=== PATIENT | male | born 1950 | race Caucasian/White ===

== ENCOUNTER → 2024-12-09 | Outpatient (CLI) | payer OTHER, SELFPAY ==
[2024-12-09 09:14] LABS: Alanine Aminotransferase 8 U/L (10-49); Albumin, Serum 4.5 gm/dL (3.4-4.8); Alkaline Phosphatase 64 U/L (46-116); Aspartate Amino Transferase 16 U/L (0-34); Bilirubin,Direct 0.1 mg/dL (0.0-0.3); Bilirubin,Total 0.5 mg/dL (0.3-1.2); Cardiac Risk Estimate 4.3 RATIO (4.0-6.7); Cholesterol 146 mg/dL (132-200); HDL Cholesterol 34 mg/dL (40-60); LDL Cholesterol,Calculated 89 mg/dL (0-130); Total Protein 6.9 gm/dL (5.7-8.2); Triglycerides 115 mg/dL (30-150)
== END | disposition home or self-care (01) ==
LOC: COPL 06:59
PROVIDERS: PCP Family Medicine; Referring Provider Internal Medicine Cardiovascular Disease; Visit Provider Internal Medicine Cardiovascular Disease
DX: I20.89 Other forms of angina pectoris (principal)
CPT/HCPCS: 36415; 80061; 80076

== ENCOUNTER 2024-12-18 04:46 | Emergency (ER) | payer OTHER, SELFPAY ==
[2024-12-18 04:47] VITALS: BMI 27.8
--- NOTE | 2024-12-18 04:50 | EKG_ITS ---
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
--- NOTE | 2024-12-18 05:00 | XR_ITS ---
Examination: AP chest single view TECHNIQUE: AP portable upright chest single view Exam date and time: December 18, 2024, 0534 hours Comparison September 28, 2016. INDICATIONS: Chest pain today. FINDINGS: Normal heart size. Lungs are clear. The osseous structures are intact IMPRESSION: No active disease
[2024-12-18 05:03] VITALS: BP 161/84; PULSE 64; RESP 15; TEMP 36.8; O2SAT 95
--- NOTE | 2024-12-18 05:06 | PD.EDCHEST ---
ED Chest Pain RME/HPI General Chief Complaint: Chest Pain Stated Complaint: CHEST PAIN Time Seen by Provider: 12/18/24 04:59 Arrival date/time: 12/18/24 04:46 RME / HPI RME / HPI narrative: Dr. Velez?s Main ED Evaluation: 74yo male with a history of DM, CAD s/p stent placement (10/2023) presents to the ED for a chief complaint of intermittent chest pain x 2 days. No radiation or migration. Patient states his pain worsens when he moves. Patient reports associated shortness of breath. He denies any N/V, sweating, fever, chills or any other associated symptoms. Patient reports he took himself off of his Brillinta 3-4 months ago and is now only taking baby aspirin. Related Data Home Medications ?Medication ?Instructions ?Recorded ?Confirmed finasteride 1 mg tablet 5 mg PO QDAY 10/07/23 10/11/23 omeprazole 20 mg capsule,delayed 20 mg PO QDAY 10/07/23 10/11/23 release tamsulosin 0.4 mg capsule 0.8 mg PO QDAY 10/07/23 10/11/23 aspirin 81 mg tablet 81 mg PO QDAY 10/11/23 10/11/23 glimepiride 2 mg tablet 2 mg PO QAM 10/11/23 10/11/23 metformin 1,000 mg tablet 1,000 mg PO QDAY 10/11/23 10/11/23 Held on 10/11/23. Instructions: Resume on 10/14/23. RESUME THIS MEDICATION ON THIS DATE AT YOUR USUAL TIME Previous Rx's ?Medication ?Instructions ?Recorded ticagrelor 90 mg tablet (Brilinta) 90 mg PO BID #60 tabs 10/11/23 Allergies Allergy/AdvReac Type Severity Reaction Status Date / Time morphine Allergy Severe DIZZY, Verified 12/18/24 04:50 DIAPHORETIC Review of Systems Review of Systems Systems Reviewed: All systems reviewed, normal except as documented Past Medical History Past Medical History NEUROLOGIC: Negative Neurological Disorders or Seizures CARDIAC: Positive Cardiac Disorders (OCCASSIONAL CHEST PAIN WITH SOB.); Negative Congestive Heart Failure RESPIRATORY: Negative Chronic Obstructive Pulmonary Disease (COPD) GASTROINTESTINAL: Positive Gastrointestinal Disorders, Gall Bladder Disease and Gastroesophageal Reflux Disease (takes medication) GENITOURINARY: Positive Genitourinary Disorders and Benign Prostatic Hyperplasia; Negative Renal Disease MUSCULOSKELETAL: Positive Musculoskeletal Disorders, Arthritis and Carpal Tunnel Syndrome (left hand) ENT: Positive Cataracts ENDOCRINE: Positive Endocrine Disorders and Diabetes Mellitus Type 2; Negative Diabetes Mellitus Type 1 HEMATOLOGIC: Negative Blood Disorders OTHER HISTORY: Positive Chicken Pox; Negative Falls, Blood Transfusions, Blood Transfusion Reaction, Anesthesia Reactions, MRSA or Cancer Family History FAMILY HISTORY: Positive Family Cardiac Disorders (BROTHER - AL) and Family Cancer (FATHER- LUNG) Surgical History SURGICAL: Positive Abdominal Surgery and Joint Replacement (RIGHT KNEE); Negative Cardiac Surgery, Endocrine Surgery or Neurologic Surgery Social History SMOKING STATUS: Never smoker ED Exam Narrative Physical exam: GENERAL APPEARANCE: AxOx4, generally well-appearing, no acute distress. HEENT: NC, AT. MMM. EOMI, clear conjunctiva, oropharynx clear. NECK: Supple without lymphadenopathy. No stiffness or restricted ROM. HEART: Normal rate and regular rhythm, normal S1/S1, no m/r/g LUNGS: CTAB, moving air well. No crackles or wheezes are heard. ABDOMEN: Soft, nontender, nondistended with good bowel sounds heard. BACK: No midline C/T/L spine pain or deformity, No CVAT, no obvious deformity. EXTREMITIES: Without cyanosis, clubbing or edema. MUSCULOSKELETAL: FROM of all major joints, no chest tenderness NEUROLOGICAL: Grossly nonfocal. Alert and oriented, moving all 4 extremities. CN not formally tested but appear grossly intact. Observed to ambulate with normal gait. Skin: Warm and dry without any rash. Course Course Course Narrative: CXR is ordered for determining the etiology of chest pain. Quality Measures none Orders Category Date Time Status EKG (ED ONLY) *Do not use* NOW Care 12/18/24 04:50 Completed EKG (ED Only) Stat Exams 12/18/24 04:50 Draft XR chest 1V Stat Exams 12/18/24 05:00 Taken CBC Stat Lab 12/18/24 05:00 Received CMP [Comprehensive Metabolic Panel] Stat Lab 12/18/24 05:00 Received Partial Thromboplastin Time Stat Lab 12/18/24 05:00 Received Prothrombin Time with INR Stat Lab 12/18/24 05:00 Received Troponin I Stat Lab 12/18/24 05:00 Received Nitroglycerin [Nitrostat 1/150] Med 12/18/24 05:07 Active 0.4 mg SL Q5MIN PRN Vital Signs Vital signs: Vital Signs Temperature 98.3 F 12/18/24 05:03 Pulse Rate 64 12/18/24 05:03 Respiratory Rate 15 12/18/24 05:03 Blood Pressure 161/84 H 12/18/24 05:03 Pulse Oximetry (%) 95 12/18/24 05:03 Oxygen Delivery Method Room Air 12/18/24 05:03 Chest Pain MDM Narrative MDM Narrative:: Scribe Attestation: 12/18/24 Marti Medellin am scribing for and in the presence of Dr. Velez. Patient data External records reviewed:: [facility] previous records (Per chart review, patient had a cardiac stent placed on 10/11/23.) Clinical information provided by:: patient Social determinants that could affect healthcare access:: none Patient has the following chronic illnesses:: DM How is presenting disease/condition affected by chronic disease/condition?: uneffected by Evaluation data The following diagnostics were reviewed and interpreted by me:: lab results, radiology exam(s) and EKG tracing(s) Lab and/or radiology exams considered but not ordered:: none Interpretation Summary: Labs are pending at signout. CXR is negative for any cardiomegaly, infiltrates or pleural effusions, according to my interpretation. EKG done at 0501, NSR, rate of 63, normal intervals, normal axis, no acute ST or T wave changes, according to my interpretation. Medications / Prescriptions Medications or Prescriptions considered but not ordered:: none Medication administrations:: Medication Administration History Nitroglycerin (Nitroglycerin 0.4 Mg Subl Btl #25) 0.4 mg SL Q5MIN PRN PRN Reason: CHEST PAIN see above Consultations Consultation(s) initiated? (list below): No Diagnosis Chest Pain Differential Diagnosis: other (ACS, acute AL, pneumonia) Most likely diagnosis given after review of the tests above:: final dx pending at sign out. Admission Indicated Admission indicated?: not indicated Admission Request Was there a request for admission?: No Disposition Plan Disposition Plan: other (specify) (Signed out to Dr. Haro at 0600 pending labs.) Discharge Plan Prescriptions/Referrals Prescriptions/Med Rec: No Action tamsulosin 0.4 mg Capsule 0.8 mg PO QDAY omeprazole 20 mg capsule,delayed release(DR/EC) 20 mg PO QDAY Patient Comments: TAKE 1 CAPSULE BY MOUTH EVERY DAY FOR 90 DAYS finasteride 1 mg Tablet 5 mg PO QDAY glimepiride 2 mg Tablet 2 mg PO QAM Rx Instructions: administer with breakfast metformin 1,000 mg Tablet 1,000 mg PO QDAY aspirin 81 mg Tablet 81 mg PO QDAY Brilinta 90 mg Tablet 90 mg PO BID Qty: 60 0RF Problem List Clinical Impression: Chest pain Patient/Caregiver Discharge Instructions Print Language: Arabic
[2024-12-18 05:42] LABS: Basophils # (Auto) 0.1 Thou/mm3 (0.0-0.2); Basophils % (Auto) 1 % (0-2.5); Eosinophils # (Auto) 0.3 Thou/mm3 (0.0-0.5); Eosinophils % (Auto) 4 % (0-10); Hematocrit 45.6 % (41.0-53.0); Hemoglobin 16.5 g/dL (13.5-16.0); Immature Granulocytes % (Auto) 1 % (0-0); Immature Granulocytes Auto 0.08 Thou/mm3 (0.00-0.00); Lymphocytes # (Auto) 1.7 Thou/mm3 (1.0-4.8); Lymphocytes % (Auto) 22 % (10-50); Mean Corpuscular HGB Conc 36.2 g/dl (31.0-37.0); Mean Corpuscular Hemoglobin 31.9 pg (25.0-35.0); Mean Corpuscular Volume 88 fL (80-100); Monocytes # (Auto) 0.6 Thou/mm3 (0.0-0.8); Monocytes % (Auto) 7 % (0-12); Neutrophils # (Auto) 5.2 Thou/mm3 (1.8-7.7); Neutrophils % (Auto) 66 % (37-80); Nucleated Red Blood Cell % 0 /100 WBC (0); Platelet Count 200 Thou/mm3 (140-440); RDW Standard Deviation 39.7 fL (35.1-43.9); Red Blood Count 5.17 Miln/mm3 (4.50-5.90); White Blood Count 7.9 Thou/mm3 (3.8-10.6)
[2024-12-18 06:20] VITALS: BP 142/77; PULSE 54; RESP 16; TEMP 36.5; O2SAT 96
[2024-12-18 06:20] LABS: Alanine Aminotransferase 7 U/L (10-49); Albumin, Serum 4.3 gm/dL (3.4-4.8); Albumin/Globulin Ratio 1.9 (1.2-2.2); Alkaline Phosphatase 63 U/L (46-116); Anion Gap 9 (7-16); Aspartate Amino Transferase 14 U/L (0-34); BUN/Creatinine Ratio 17 Ratio (12-20); Bilirubin,Total 0.4 mg/dL (0.3-1.2); Blood Urea Nitrogen 17 mg/dL (9-23); Calcium 8.7 mg/dL (8.3-10.6); Calcium (Corrected) 8.7 mg/dL (8.5-10.1); Carbon Dioxide 23.9 mMol/L (20.0-31.0); Chloride 106 mMol/L (98-107); Estimated Creatinine Clearance 71.1 mL/min (>60); Globulin 2.3 gm/dL (2.3-3.5); Glucose 254 mg/dL (74-106); Osmolality,Calculated 288 (275-295); Potassium 4.1 mMol/L (3.4-5.1); Sodium 139 mMol/L (136-145); Total Protein 6.6 gm/dL (5.7-8.2); Troponin I < 0.002 ng/mL (0.0-0.045); eGFR > 60 See Note
[2024-12-18 06:27] LABS: Partial Thromboplastin Time 25.1 Seconds (22.0-36.0); Prothrombin Time 11.2 Seconds (9.0-12.2)
--- NOTE | 2024-12-18 07:31 | PD.EDADDENDU ---
Emergency Room Addendum Addendum Narrative: 0600: Care assumed from Dr. Velez, the previous shift emergency physician. Past medical, surgical, social and family history reviewed. Vitals and home medications reviewed. I will assume the care of the patient at this time, pending labs and final disposition. Please refer to the emergency department record for history and examination from initial visit.?The following addendum documentation note is intended to reflect any pending information, findings, or radiology results not included in the patient?s initial chart. Nursing notes reviewed by me. Vital signs reviewed by me. [facility] medical records reviewed by me. Delta troponin remains unchanged and negative. 1045: At this time patient has no pain. Patient remains clinically stable throughout the emergency department visit. We reviewed all the results, analysis, and treatment plans. Patient is amenable to discharge. Strict return precautions were outlined. Patient was discharged in stable condition. 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 Currie's office after leaving here.
--- NOTE | 2024-12-18 07:52 | PC.NURSE ---
PT DENIES PAIN OR DISCOMFORT UPON ASSUMPTION OF CARE, PT GIVEN URINAL. VSS ON TELE, CALL [facility] IN REACH, WILL CONT W/POC.
[2024-12-18 10:00] VITALS: BP 155/79; PULSE 56; RESP 18; TEMP 36.6; O2SAT 96
[2024-12-18 10:23] LABS: Troponin I < 0.002 ng/mL (0.0-0.045)
== END 2024-12-18 10:59 | disposition home or self-care (01) ==
PROVIDERS: Family Medicine; Emergency Provider Emergency Medicine; PCP Family Medicine
DX: R07.89 Other chest pain (principal); E11.9 Type 2 diabetes mellitus without complications; I25.10 Atherosclerotic heart disease of native coronary artery without angina pectoris; Z95.5 Presence of coronary angioplasty implant and graft
CPT/HCPCS: 36415; 71045; 80053; 84484; 85025; 85610; 85730; 93005; 99283

== ENCOUNTER → 2025-04-15 | Outpatient (CLI) | payer OTHER, SELFPAY ==
[2025-04-15 08:27] LABS: Urea Breath Test Negative (Negative)
== END | disposition home or self-care (01) ==
LOC: COPL 07:04
PROVIDERS: PCP Family Medicine; Referring Provider Nurse Practitioner Family; Visit Provider Nurse Practitioner Family
DX: R11.0 Nausea (principal)
CPT/HCPCS: 83013; 83014

== ENCOUNTER → 2025-05-05 | Outpatient (CLI) | payer OTHER, SELFPAY ==
--- NOTE | 2025-05-05 07:15 | XR_ITS ---
Examination: Abdomen sonogram, complete Date and time of exam: May 05, 2025, 0729 hrs. Indications: Abdominal distention nausea vomiting beginning several months ago. Technique: Multiple real-time grayscale transabdominal sonographic images of the abdomen have been obtained. Findings: Absent gallbladder. Normal common bile duct 0.5 cm Pancreatic head 2.1 cm Aorta obscured by bowel gas Liver 15 cm lobular contour no focal liver lesions Normal hepatopedal portal venous flow Patent IVC Right kidney 11.3 cm cortex 1.5 cm Midpole cyst 22 mm Left kidney 11.0 cm renal cortex 2.9 cm Moderate bilateral renal parenchymal scar formation Spleen 11.3 cm Impression: Absent gallbladder Normal common bile duct Suspect primary hepatocellular disease Moderate bilateral renal parenchymal scar formation
--- NOTE | 2025-05-05 07:15 | XR_ITS ---
Examination: Pelvic ultrasound, transabdominal, complete Technique: Transabdominal ultrasound of the pelvis performed using grayscale imaging Date and time of exam: May 05, 2025, 0720 hrs. Indications: Abdominal distention nausea vomiting and pelvic pain beginning several months ago Findings: No bladder mass or bladder calculi Bladder prevoid volume 116 cc postvoid volume 22 cc Significant prostatomegaly 6.1 x 5.7 x 6.2 cm volume 111.4 cc no prostate nodules Impression: Significant prostatomegaly, no definite prostate nodules, consider transrectal prostate sonography follow-up
== END | disposition home or self-care (01) ==
LOC: CDIM 07:03
PROVIDERS: PCP Family Medicine; Referring Provider Family Medicine; Visit Provider Family Medicine
DX: N40.0 Benign prostatic hyperplasia without lower urinary tract symptoms (principal); N28.89 Other specified disorders of kidney and ureter; Z90.49 Acquired absence of other specified parts of digestive tract
CPT/HCPCS: 76700; 76856

== ENCOUNTER → 2025-07-20 | Outpatient (CLI) | payer OTHER, SELFPAY ==
--- NOTE | 2025-07-20 12:04 | XR_ITS ---
Examination: Shoulder, right, 3 views Technique: Shoulder AP internal rotation, AP external rotation, Y view shoulder, 3 views Exam date and time : 07/20/2025 12:41 p.m. Indication right shoulder pain for 2 weeks no known trauma FINDINGS: There is mild degenerative irregularity along the undersurface of the acromion process the AC joint otherwise appears normal. The rotator space above the head of the humerus is normal, the glenohumeral joint is normal. All visible bones in the right upper chest and right shoulder appear radiographically normal. Right lung is clear. IMPRESSION: 1. Although there is mild degenerative irregularity along the undersurface of the acromion process, there is no evidence of narrowing of the rotator space. 2. The entire study is essentially normal.
== END | disposition home or self-care (01) ==
LOC: CDIM 11:56
PROVIDERS: PCP Family Medicine; Referring Provider Family Medicine; Visit Provider Family Medicine
DX: M25.811 Other specified joint disorders, right shoulder (principal)
CPT/HCPCS: 73030

== ENCOUNTER → 2025-07-22 | Outpatient (CLI) | payer OTHER, SELFPAY ==
--- NOTE | 2025-07-22 11:00 | XR_ITS ---
Examination: CT without high resolution screening chest, without contrast. 2-D sagittal reconstructions. 2-D coronal reconstructions. 3-D reconstructions. Date and time of exam: July 22, 2025, 1042 hours INDICATIONS: Numerous bilateral noncalcified pulmonary nodules on CT chest May 18, 2024 CTDI: vol (mGy): 7.61 DLP: (mGycm): 371 Technique: Multiple 1.25 mm axial sections of the low-dose lung scanning have been obtained. 2-D sagittal and coronal reconstructions have been obtained. 3-D reconstructions have been obtained. Low dose protocols were performed. One or more of the following dose reduction techniques were used; automated exposure control, adjustment of the mA and/or KV according to patient size, use of iterative reconstruction technique. Findings: No thoracic aortic aneurysmal dilatation Pulmonary artery segments are not enlarged No mediastinal lymphadenopathy. Heavy calcification left anterior descending coronary artery No definite change in multiple bilateral pulmonary nodules No new pulmonary nodules No pneumonia or pulmonary edema No visualized liver or splenic lesions Absent gallbladder No pancreatic mass No hydronephrosis IMPRESSION: No definite change in multiple bilateral pulmonary nodules Lung RADS category 3: Probably benign findings Recommend 1 additional 6-month CT chest without contrast follow-up
== END | disposition home or self-care (01) ==
LOC: CCTX 10:29
PROVIDERS: PCP Family Medicine; Referring Provider Family Medicine; Visit Provider Family Medicine
DX: R91.8 Other nonspecific abnormal finding of lung field (principal)
CPT/HCPCS: 71271